=== PATIENT | male | born 1960 | race Asian ===

== ENCOUNTER 2017-10-08 12:43 | Emergency (ER) | payer OTHER ==
[~2017-10-08] VITALS: Ht 167.6 cm; Wt 68.0 kg
--- NOTE | 2017-10-08 12:58 | Emergency Room Report ---
History of Present Illness General Chief Complaint: Laceration Source: Patient Present Illness HPI 57-year-old male patient presents ER brought in by ambulance complaining of laceration on left ring finger. Reports that he was trimming the hedges in his garden with his "pop" when he accidentally cut his finger. Reports bleeding from finger. Reports bleeding well controlled by gauze. Reports last tetanus shot was "maybe" in the last 10 years. Reports right-hand dominant. Denies fever, chest pain, shortness of breath. reports able to move hand. Denies taking medication for relief of symptoms. Allergies: Coded Allergies: No Known Allergies (Unverified , 10/08/17) Patient History Past Medical History: see triage record Reviewed Nursing Documentation: PMH: Agreed; PSxH: Agreed Nursing Documentation-PMH Hx Cardiac Problems: Yes Review of Systems All Other Systems: negative except mentioned in HPI Physical Exam Vital Signs Date Time Temp Pulse Resp B/P (MAP) Pulse Ox O2 Delivery O2 Flow Rate FiO2 10/08/17 12:38 97.4 80 20 102/71 100 Room Air 97.3 Sp02 EP Interpretation: reviewed, normal General Appearance: well appearing, no apparent distress, alert, GCS 15, non- toxic Head: normocephalic, atraumatic Eyes: bilateral eye normal inspection, bilateral eye PERRL ENT: hearing grossly normal, normal pharynx, no angioedema, normal voice, uvula midline, moist mucus membranes Neck: full range of motion Respiratory: lungs clear, normal breath sounds, no rhonchi, no respiratory distress, no accessory muscle use, no wheezing, speaking full sentences Cardiovascular #1: regular rate, rhythm, no edema Cardiovascular #2: 2+ radial (R), 2+ radial (L) Musculoskeletal: back normal, digits/nails normal, gait/station normal, normal range of motion, swelling, other - full range of motion with flexion and extension, sensation intact to light touch, cap refill less than 2 seconds, no fusiform swelling, tender Neurologic: alert, oriented x3, responsive, motor strength/tone normal, sensory intact Psychiatric: mood/affect normal Skin: laceration - 2 cm laceration on distal phalanx of left ring finger on palmar side, no active bleeding, well controlled with gauze Procedures Laceration/Wound Repair Laceration/Wound Repair : Consent: Verbal Wound Location: upper extremity - left ring finger Wound's Depth, Shape: superficial, irregular, other - irregular tissue borders Wound Length (cm): 2 Wound Explored: contaminated Irrigated w/ Saline (ccs): 10 Betadine Prep?: Yes Anesthesia: 1% Lidocaine Volume Anesthetic (ccs): 3 Wound Debrided: extensive Suture Size/Type: 5:0, proline Number of Sutures: 6 Layer Closure?: No Sterile Dressing Applied?: Yes Splint Applied?: No Sling Applied?: No Patient Tolerated: Well Complications: None Medical Decision Making PA Attestation Dr. Lopez is my supervising Physician whom patient management has been discussed with. Diagnostic Impression: Primary Impression: Laceration ER Course Pt presents to ED c/o laceration on left ring finger. DDX considered but are not limited to laceration, abrasion, contusion, cellulitis. X-ray and ordered to rule out underlying damage. VITAL SIGNS are WNL, patient is afebrile ED INTERVENTIONS: Provided with tetanus Due to patient unsure of how long ago receiving tetanus shot and wound appearing dirty. X-ray of left hand shows no acute fracture per the preliminary reading. Discuss results with patient. Wound was cleaned and irrigated using normal saline. Digital block using Lidocaine 1%. Irregular tissue borders likely due to injury, used laceration kit scissors to modify tissue borders. Laceration repaired. 6 sutures placed. Wound cleaned and covered using sterile dressing and Bacitracin. Patient reports understanding and agreement to treatment plan. Keep wound clean and dry. DISCHARGE: Rx provided for Keflex Rx provided for Bacitracin Rx provided for Ibuprofen At this time pt is stable for d/c to home. Patient resting comfortably, in no acute distress, nontoxic appearing, talking without difficulty. Will provide with patient care instructions and any necessary prescriptions. Patient to take medication as instructed. Care plan and follow-up instructions provided. Work note provided to patient. Patient questions asked and answered. Patient instructed to follow-up with primary care provider in 1-3 days for wound check and 7-10 days for removal of sutures ER precautions given. Patient instructed to return to ER immediately for any new or worsening of symptoms. - Please note that this Emergency Department Report was dictated using [employer] train operator technology software, occasionally this can lead to erroneous entry secondary to interpretation by the dictation equipment. Other X-Ray Diagnostic Results Other X-Ray Diagnostic Results : X-Ray ordered: left hand # of Views/Limited Vs Complete: 3 View Indication: Pain EP Interpretation: Yes PA Xray: Interpretation reviewed, by supervising MD, and agrees with findings. Interpretation: no dislocation, no soft tissue swelling, no fractures Impression: No acute disease JEANIE Scribcelestino Text Rl Lerma PA-C Last Vital Signs Date Time Temp Pulse Resp B/P (MAP) Pulse Ox O2 Delivery O2 Flow Rate FiO2 10/08/17 12:38 97.4 80 20 102/71 100 Room Air 97.3 Disposition: HOME, SELF-CARE Condition: Stable Scripts Ibuprofen* (MOTRIN*) 600 Mg Tablet 600 MG ORAL Q8H PRN for For Pain, #30 TAB 0 Refills Prov: Won Lerma 10/08/17 Cephalexin* (KEFLEX*) 500 Mg Capsule 500 MG ORAL EVERY 12 HOURS, #14 CAP 0 Refills Prov: Won Lerma 10/08/17 Bacitracin/Polymyxin B Sulfate (BACITRACIN-POLYMYXIN OINTMENT) 28.35 Gm Oint...g. 1 APPLIC TP BID, #28 GM Prov: Won Lerma 10/08/17 Patient Instructions: Laceration Care, Adult Additional Instructions: Patient instructed to follow-up with primary care provider in 1-3 days for wound check and 7-10 days for removal of sutures. Take medications as directed. Keep wound clean and dry. Patient questions asked and answered. ER precautions given, patient instructed to return to ER immediately for any new or worsening of symptoms. Won Lerma Oct 08, 2017 12:58
[2017-10-08] MEDS ORDERED: Ketorolac 30mg Inj IM ONE (13:00)
[2017-10-08] MEDS ORDERED: Lidocaine 1% MPF 10mg/ml 5ml INJ ONE (13:00)
[2017-10-08] MEDS ORDERED: Tetanus/Diptheria/Pertussis Vaccine 0.5ml Syr IM ONE (13:00)
[2017-10-08 13:54] VITALS: BP 102/71
[2017-10-08] MEDS ORDERED: Bacitracin Oint UD TOPIC ONE ×2 (14:33→14:45)
[2017-10-08] MEDS ORDERED: CEPHALEXIN500 MG ORAL (14:36)
[2017-10-08] MEDS ORDERED: BACITRACIN-P28.35 GM TP (14:36)
[2017-10-08] MEDS ORDERED: IBUPROFEN600 MG ORAL (14:36)
[2017-10-08 14:45] VITALS: BP 102/71
--- NOTE | 2017-10-09 10:36 | Diagnostic Imaging Report ---
Indication: Pain, trauma, laceration Technique: 3 views left hand Comparison: none Findings: No radiopaque foreign body demonstrated. No significant soft tissue gas noted. No acute fractures. No dislocations. No radiopaque foreign body demonstrated. Impression: Negative
== END 2017-10-08 15:28 | disposition home or self-care (01) ==
LOC: EDBD 12:43 → EMR 14:18
DX: S61.215A Laceration without foreign body of left ring finger without damage to nail, initial encounter (principal); W27.8XXA Contact with other nonpowered hand tool, initial encounter; Y93.H2 Activity, gardening and landscaping; Y92.096 Garden or yard of other non-institutional residence as the place of occurrence of the external cause; Y99.8 Other external cause status; Z23 Encounter for immunization
CPT/HCPCS: 12001; 73130; 90471; 90715; 99284; J1885